=== PATIENT | female | born 1985 | race African-American/Black ===

== ENCOUNTER 2016-08-14 22:17 | Emergency (ER) | payer OTHER, MEDICAID ==
[~2016-08-14] VITALS: Ht 162.6 cm; Wt 71.0 kg
[~2016-08-14 22:17] MED LIST: METR-1 PO
[2016-08-14 22:18] VITALS: BP 101/47; PULSE 77; RESP 16; TEMP 98.7; O2SAT 99
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
[2016-08-14] MEDS ORDERED: DICL75TA PO (22:45)
[2016-08-14] MEDS ORDERED: CYCL1TAB29 PO (22:45)
== END 2016-08-14 22:56 | disposition home or self-care (01) ==
LOC: NEPK 22:17
DX: M54.2 Cervicalgia (principal); M54.9 Dorsalgia, unspecified; V89.2XXA Person injured in unspecified motor-vehicle accident, traffic, initial encounter
CPT/HCPCS: 99283

== ENCOUNTER 2016-11-04 12:49 | Emergency (ER) | payer MEDICAID ==
[~2016-11-04 12:49] MED LIST changes: +CYCL1TAB29 PO; +DICL75TA PO; -METR-1 PO
[2016-11-04 12:51] VITALS: BP 111/65; PULSE 75; RESP 20; TEMP 98.7; O2SAT 98
--- NOTE | 2016-11-04 13:29 | PD ---
HPI . abdominal discomfort, dysuria, possible UTI Chief Complaint: Complaint Time Seen by Provider: 13:29 Travel History International Travel<30 days: No Contact w/Intl Traveler<30days: No Traveled to known affect area: No History of Present Illness HPI 31-year-old female who has had urinary tract infections in the past here with complaints of possible urinary tract infection. Patient reports some suprapubic discomfort, dysuria and increased urinary frequency for the past week. Patient denies any fever or chills. She has no significant abdominal pain or discomfort. She denies any vaginal discharge. She denies any high risk sexual behaviors. PFSH Past Medical History Medical History: Denies Significant Hx Diminished Hearing: No Immunizations Current: Yes ?: Not : 6 Para: 5 : 1 Tubal Ligation: Yes Past Surgical History Section: Yes (x2) Gynecologic Surgery: Yes Social History Alcohol Use: No Tobacco Use: No Substance Use: No Allergies-Medications (Allergen,Severity, Reaction): Coded Allergies: No Known Allergies (Unverified , 11/04/16) Reported Meds & Prescriptions Reported Meds & Active Scripts Active Flexeril (Cyclobenzaprine HCl) 10 Mg Tab 10 Mg PO TID Diclofenac Sodium DR (Diclofenac Sodium) 75 Mg Tabdr 75 Mg PO BID Review of Systems General / Constitutional: No: Fever Eyes: No: Visual changes HENT: No: Headaches Cardiovascular: No: Chest Pain or Discomfort Respiratory: No: Shortness of Breath Gastrointestinal: Positive: Abdominal Pain (suprapubic) Genitourinary: Positive: Frequency, Dysuria Musculoskeletal: No: Pain Skin: No Rash Neurologic: No: Weakness Psychiatric: No: Depression Endocrine: No: Polydipsia Hematologic/Lymphatic: No: Easy Bruising Physical Exam Narrative GENERAL: AAO x 3, no acute distress, Well-nourished, well-developed patient. SKIN: Warm and dry. No visible rashes or bruising. HEAD: Normocephalic and atraumatic. EYES: No scleral icterus. No injection or drainage. ENT: No nasal drainage noted. Mucous membranes pink. Airway patent. NECK: Supple, trachea midline. No JVD. CARDIOVASCULAR: Regular rate and rhythm without murmurs, gallops, or rubs. RESPIRATORY: Breath sounds equal bilaterally. No accessory muscle use. No rhonchi or rales. GASTROINTESTINAL: Abdomen soft, nontender, nondistended. EXTREMITIES: No cyanosis or edema. BACK: Nontender without obvious deformity. No CVA tenderness. NEURO: CN II-12 intact, PSYCH: AAO x 3, normal affect. Data Data Last Documented VS Vital Signs Date Time Temp Pulse Resp B/P Pulse Ox O2 Delivery O2 Flow Rate FiO2 11/04/16 12:51 98.7 75 20 111/65 98 Room Air Orders Urinalysis - C+S If Indicated (11/04/16 13:16) Labs Laboratory Tests Test 11/04/16 13:09 Urine Color LIGHT-YELLOW Urine Turbidity CLEAR Urine pH 6.0 Urine Specific [place] 1.008 Urine Protein NEG mg/dL Urine Glucose (UA) NEG mg/dL Urine Ketones NEG mg/dL Urine Occult Blood NEG Urine Nitrite NEG Urine Bilirubin NEG Urine Urobilinogen LESS THAN 2.0 MG/DL Urine Leukocyte Esterase NEG Urine WBC LESS THAN 1 /hpf Urine Squamous Epithelial 1 /hpf Cells Microscopic Urinalysis Comment CULT NOT INDICATED MDM Medical Decision Making Medical Screen Exam Complete: Yes Emergency Medical Condition: Yes Medical Record Reviewed: Yes Differential Diagnosis UTI, less likely pyelonephritis, less likely vaginitis Narrative Course 31 yr old female here with what appears to be UTI. UA Is pending. UA is unremarkable. I discussed with patient. She denies any pain in the abdomen. She has no pain in the suprapubic area. She denies any vaginal discharge. We discussed ovulation pains and she thinks this could be what she is may have, but it does not explained increased urinary frequency. I recommend outpatient f/ u. I do not recommend labs and scanning as she has benign exam and normal ranged vitals. I stressed f/u with PCP and Delivery Table Operator. Patient verbalized understanding of instructions, questions were answered, and thanked me for their care. I advised them if their condition worsens, please return to the nearest emergency room for further care. Diagnosis Primary Impression: Increased urinary frequency Patient Instructions: General Instructions Additional Instructions: Please return to emergency department if your symptoms return or worsen. Follow up with your primary care provider. Med/Other Pt SpecificInfo: Prescription(s) given Disposition: 01 DISCHARGE HOME Condition: Stable Kayleigh Pantoja Nov 04, 2016 13:29
[2016-11-04 13:32] LABS: BLOOD, URINE NEG (NEG); GLUCOSE,URINE NEG (NEG); KETONE, URINE NEG (NEG); NITRITE,URINE NEG (NEG); SQUAMOUS EPITHELIAL CELL URINE 1 /hpf (0-5); URINE COLOR LIGHT-YELLOW (YELLW/STRAW)
[2016-11-04 13:37] LABS: COMMENT (UR) CULT NOT INDICATED; CULTURE IF INDICATED CULT NOT INDICATED
== END 2016-11-04 15:55 | disposition home or self-care (01) ==
LOC: NEPK 14:09
DX: R35.0 Frequency of micturition (principal); R30.0 Dysuria
CPT/HCPCS: 81001; 99283

== ENCOUNTER 2017-01-13 17:20 | Emergency (ER) | payer MEDICAID ==
[~2017-01-13] VITALS: Ht 162.6 cm; Wt 76.0 kg
[2017-01-13 17:21] VITALS: BP 115/68; PULSE 78; RESP 20; TEMP 98.7; O2SAT 98
--- NOTE | 2017-01-13 19:40 | PD ---
HPI Chief Complaint: Skin Problem Time Seen by Provider: 19:25 Travel History International Travel<30 days: No Contact w/Intl Traveler<30days: No Traveled to known affect area: No History of Present Illness HPI 31-year-old female complaining of facial lesions recurrent with pain. States she is seeing her primary care doctor in 1 week but does not want to wait. She states that these lesions have been recurring for a while and are painful. She describes the pain as burning, moderate pain.Denies fevers , chills, or any other symptoms. History Past Medical Histgory Medical History: Denies Significant Hx Tetanus Vaccination: < 5 Years Social History Alcohol Use: No Tobacco Use: No Allergies-Medications (Allergen,Severity, Reaction): Coded Allergies: No Known Allergies (Unverified , 01/13/17) Reported Meds & Prescriptions Reported Meds & Active Scripts Active No Active Prescriptions or Reported Medications Physical Exam Narrative 31-year-old female here for recurrent lesions around her oral cavity. She states that she is concerned because it is on his face and does not want to wait for her primary care visit in one week. She denies any unusual discharge from the area, fevers, or chills. Data Data Last Documented VS Vital Signs Date Time Temp Pulse Resp B/P (MAP) Pulse Ox O2 Delivery O2 Flow Rate FiO2 01/13/17 17:21 98.7 78 20 115/68 (84) 98 Room Air MDM Medical Screen Exam Complete: Yes Emergency Medical Condition: No Differential Diagnosis Oral herpes recurrent Narrative Course 31-year-old female with recurrent lesions around her mouth. She says that this has been going on for a little while.. History and physical are consistent with oral herpes. She was advised on using [id number] medications and follow-up with her primary care as discussed. A medical screening exam was performed: At the time of evaluation the presenting medical condition was determined not to be of an emergent nature. The patient was given the option of receiving additional care, but declined. Patient was given options for additional community resources from which to obtain care. The Patient Has Been advised to seek medical attention for their presenting complaint. The patient has been advised to return to the ER at any time if an emergent condition develops. Primary Impression: Encounter for medical screening examination Scripts No Active Prescriptions or Reported Meds Disposition: 01 DISCHARGE HOME Condition: Stable Anca Kasper Jan 13, 2017 19:40
== END 2017-01-13 20:00 | disposition left against medical advice (07) ==
LOC: NEPD 17:20
DX: L98.8 Other specified disorders of the skin and subcutaneous tissue (principal)
CPT/HCPCS: 99281